=== PATIENT | male | born 1975 | race Caucasian/White ===

== ENCOUNTER 2018-03-30 20:43 | Emergency (ER) | payer BC ==
[~2018-03-30] VITALS: Ht 180.3 cm; Wt 88.6 kg
[2018-03-30 21:35] VITALS: BP 141/75
[2018-03-30] MEDS ORDERED: HYDR-569 PO (22:50)
[2018-03-30] MEDS ORDERED: IBUP-1984 PO (22:50)
[2018-03-30] MEDS ORDERED: HYDROcodone/acetaminophen 10/325mg tab PO ONE (22:55)
== END 2018-03-30 23:11 | disposition home or self-care (01) ==
LOC: ER 20:44
DX: S83.412A Sprain of medial collateral ligament of left knee, initial encounter (principal); S39.012A Strain of muscle, fascia and tendon of lower back, initial encounter; S20.212A Contusion of left front wall of thorax, initial encounter; E11.9 Type 2 diabetes mellitus without complications; G89.29 Other chronic pain; M54.9 Dorsalgia, unspecified; Z98.890 Other specified postprocedural states; Z88.8 Allergy status to other drugs, medicaments and biological substances; W22.8XXA Striking against or struck by other objects, initial encounter; Y93.39 Activity, other involving climbing, rappelling and jumping off; Y92.34 Swimming pool (public) as the place of occurrence of the external cause; Y99.9 Unspecified external cause status
CPT/HCPCS: 29505; 73564; 99284